=== PATIENT | female | born 1990 | race Two or more races ===

== ENCOUNTER 2019-08-20 11:26 | Emergency (ER) | payer BC, OTHER ==
[2019-08-20 11:35] VITALS: TEMP 98.7
[2019-08-20] MEDS ORDERED: SODIUM CHLORIDE 0.9% 1,000 ML IV ONE (11:50)
--- NOTE | 2019-08-20 11:53 | ED ---
General Adult HPI - General Chief complaint: Vaginal Bleeding Stated complaint: Vaginal bleeding Time Seen by Provider: 08/20/19 11:44 Source: patient, RN notes reviewed Mode of arrival: ambulatory Limitations: no limitations - History of Present Illness Initial comments: Patient is a pleasant 29-year-old female presenting to the emergency Department with complaints of vaginal bleeding. Patient believes she is approximate 6-8 weeks . Last menstrual cycle was in May. Patient had 2 previous pregnancies, one of them when gestation without complication. Patient has started having mild spotting around a week ago. Around 3-4 days ago patient had slightly increased bleeding however still is mild. Patient does have cramping that is mild daytime however and nighttime can be moderate at times. - Related Data Home Medications Medication Instructions Recorded Confirmed Mlh-Gohi-Wjjdu Acid 1 tab PO DAILY 01/10/16 02/01/16 [-U Capsule (formulary)] Previous Rx's Medication Instructions Recorded Acetaminophen/Codeine Liquid 5 ml PO Q4H PRN #100 ml 02/02/16 [Tylenol/Codeine Liquid] Allergies Allergy/AdvReac Type Severity Reaction Status Date / Time No Known Allergies Allergy Verified 08/20/19 11:36 Review of Systems ROS Statement: Those systems with pertinent positive or pertinent negative responses have been documented in the HPI. ROS Other: All systems not noted in ROS Statement are negative. Constitutional: Denies: fever Eyes: Denies: eye pain ENT: Denies: ear pain Respiratory: Denies: cough Cardiovascular: Denies: chest pain Endocrine: Denies: fatigue Gastrointestinal: Denies: abdominal pain, nausea, vomiting Genitourinary: Reports: as per HPI. Denies: dysuria Musculoskeletal: Denies: back pain Skin: Denies: rash Neurological: Denies: weakness Past Medical History Past Medical History: GERD/Reflux History of Any Multi-Drug Resistant Organisms: None Reported Past Surgical History: Section Past Anesthesia/Blood Transfusion Reactions: No Reported Reaction Past Psychological History: No Psychological Hx Reported Smoking Status: Never smoker Past Alcohol Use History: None Reported Past Drug Use History: None Reported - Past Family History Father Family Medical History: No Reported History Mother Family Medical History: No Reported History General Exam Limitations: no limitations General appearance: alert, in no apparent distress Head exam: Present: normocephalic Eye exam: Present: normal appearance Respiratory exam: Present: normal lung sounds bilaterally Cardiovascular Exam: Present: regular rate, normal rhythm GI/Abdominal exam: Present: soft. Absent: distended, tenderness, guarding, rebound, rigid External exam: Present: normal external exam (Nurse Natalia is present) Speculum exam: Present: vaginal bleeding (Mild) By manual exam: Present: normal by manual exam. Absent: cervical motion tenderness, adnexal tenderness, adnexal mass Extremities exam: Present: normal inspection Neurological exam: Present: alert Psychiatric exam: Present: normal affect, normal mood Skin exam: Present: normal color Course Vital Signs 08/20/19 08/20/19 08/20/19 11:33 12:29 13:55 Temperature 98.7 F Pulse Rate 104 H 88 84 Respiratory 16 18 18 Rate Blood Pressure 129/85 125/90 133/93 O2 Sat by Pulse 100 99 100 Oximetry Medical Decision Making - Medical Decision Making Patient reevaluated and resting comfortably at bedside, dressed. Patient is updated on results including ultrasound. Patient is made aware that ectopic has not completely ruled out. Patient is made aware of need for repeat beta hCG in 48 hours as well as follow up with Dr. Pham. Case was discussed with Dr. Pham who is made aware and in agreement with plan. - Lab Data Result diagrams: 08/20/19 13:25 08/20/19 12:00 Lab Results 08/20/19 08/20/19 08/20/19 Range/Units 12:00 12:00 12:00 WBC (3.8-10.6) k/uL RBC (3.80-5.40) m/uL Hgb (11.4-16.0) gm/dL Hct (34.0-46.0) % MCV (80.0-100.0) fL MCH (25.0-35.0) pg MCHC (31.0-37.0) g/dL RDW (11.5-15.5) % Plt Count (150-450) k/uL Neutrophils % % Lymphocytes % % Monocytes % % Eosinophils % % Basophils % % Neutrophils # (1.3-7.7) k/uL Lymphocytes # (1.0-4.8) k/uL Monocytes # (0-1.0) k/uL Eosinophils # (0-0.7) k/uL Basophils # (0-0.2) k/uL PT 10.0 (9.0-12.0) sec INR 1.0 (<1.2) APTT 25.4 (22.0-30.0) sec Sodium 139 (137-145) mmol/L Potassium 4.3 (3.5-5.1) mmol/L Chloride 108 H (98-107) mmol/L Carbon Dioxide 19 L (22-30) mmol/L Anion Gap 12 mmol/L BUN 10 (7-17) mg/dL Creatinine 0.58 (0.52-1.04) mg/dL Est GFR (CKD-EPI)AfAm >90 (>60 ml/min/1.73 sqM) Est GFR (CKD-EPI)NonAf >90 (>60 ml/min/1.73 sqM) Glucose 93 (74-99) mg/dL Calcium 9.4 (8.4-10.2) mg/dL Total Bilirubin 0.7 (0.2-1.3) mg/dL AST 26 (14-36) U/L ALT 15 (4-34) U/L Alkaline Phosphatase 56 (38-126) U/L Total Protein 8.1 (6.3-8.2) g/dL Albumin 4.6 (3.5-5.0) g/dL HCG, Quant 798.7 mIU/mL Urine Color Urine Appearance (Clear) Urine pH (5.0-8.0) Ur Specific [place] (1.001-1.035) Urine Protein (Negative) Urine Glucose (UA) (Negative) Urine Ketones (Negative) Urine Blood (Negative) Urine Nitrite (Negative) Urine Bilirubin (Negative) Urine Urobilinogen (<2.0) mg/dL Ur Leukocyte Esterase (Negative) Urine RBC (0-5) /hpf Urine WBC (0-5) /hpf Ur Squamous Epith Cells (0-4) /hpf Urine Bacteria (None) /hpf Urine Mucus (None) /hpf Trichomonas Ag (Rapid) (Negative) Blood Type A Positive Blood Type Recheck A Pos Bld Type Recheck Status No 08/20/19 08/20/19 08/20/19 Range/Units 12:02 12:30 13:25 WBC 9.2 (3.8-10.6) k/uL RBC 4.49 (3.80-5.40) m/uL Hgb 14.2 (11.4-16.0) gm/dL Hct 42.9 (34.0-46.0) % MCV 95.6 (80.0-100.0) fL MCH 31.6 (25.0-35.0) pg MCHC 33.0 (31.0-37.0) g/dL RDW 12.0 (11.5-15.5) % Plt Count 274 (150-450) k/uL Neutrophils % 81 % Lymphocytes % 14 % Monocytes % 3 % Eosinophils % 2 % Basophils % 0 % Neutrophils # 7.4 (1.3-7.7) k/uL Lymphocytes # 1.3 (1.0-4.8) k/uL Monocytes # 0.3 (0-1.0) k/uL Eosinophils # 0.1 (0-0.7) k/uL Basophils # 0.0 (0-0.2) k/uL PT (9.0-12.0) sec INR (<1.2) APTT (22.0-30.0) sec Sodium (137-145) mmol/L Potassium (3.5-5.1) mmol/L Chloride (98-107) mmol/L Carbon Dioxide (22-30) mmol/L Anion Gap mmol/L BUN (7-17) mg/dL Creatinine (0.52-1.04) mg/dL Est GFR (CKD-EPI)AfAm (>60 ml/min/1.73 sqM) Est GFR (CKD-EPI)NonAf (>60 ml/min/1.73 sqM) Glucose (74-99) mg/dL Calcium (8.4-10.2) mg/dL Total Bilirubin (0.2-1.3) mg/dL AST (14-36) U/L ALT (4-34) U/L Alkaline Phosphatase (38-126) U/L Total Protein (6.3-8.2) g/dL Albumin (3.5-5.0) g/dL HCG, Quant mIU/mL Urine Color Light Red Urine Appearance Cloudy H (Clear) Urine pH 6.0 (5.0-8.0) Ur Specific [place] 1.029 (1.001-1.035) Urine Protein 1+ H (Negative) Urine Glucose (UA) Negative (Negative) Urine Ketones Negative (Negative) Urine Blood Large H (Negative) Urine Nitrite Negative (Negative) Urine Bilirubin Negative (Negative) Urine Urobilinogen <2.0 (<2.0) mg/dL Ur Leukocyte Esterase Moderate H (Negative) Urine RBC >182 H (0-5) /hpf Urine WBC 30 H (0-5) /hpf Ur Squamous Epith Cells 9 H (0-4) /hpf Urine Bacteria Rare H (None) /hpf Urine Mucus Many H (None) /hpf Trichomonas Ag (Rapid) Negative (Negative) Blood Type Blood Type Recheck Bld Type Recheck Status - Radiology Data Radiology results: report reviewed (Pelvic ultrasound shows possible spontaneous however cannot rule out early IUP. Ectopic not entirely excluded. No suspicious extra ovarian adnexal mass.) Disposition Clinical Impression: Threatened Disposition: HOME SELF-CARE Condition: Stable Instructions (If sedation given, give patient instructions): Threatened Miscarriage (ED) Additional Instructions: Repeat blood draw in 48 hours, prescription provided. Please follow-up with Dr. Pham after this blood draw for further evaluation. Return for increased pain, bleeding, passing out, worsening or changing symptoms or other concerns. Please be made aware that ectopic/tubal has not been completely excluded. Is patient prescribed a controlled substance at d/c from ED?: No Referrals: Abel Hunt MD [Primary Care Provider] - 1-2 days Wesley Jordan DO [Doctor of Osteopathic Medicine] - 1-2 days Time of Disposition: 14:06
[2019-08-20 12:30] LABS: ALT 15 U/L (4-34); AST 26 U/L (14-36); African American GFR (CKD) >90 (>60 ml/min/1.73 sqM); Albumin 4.6 g/dL (3.5-5.0); Alkaline Phosphatase 56 U/L (38-126); Anion Gap 12 mmol/L; Blood Urea Nitrogen 10 mg/dL (7-17); Calcium 9.4 mg/dL (8.4-10.2); Carbon Dioxide 19 mmol/L (22-30); Chloride 108 mmol/L (98-107); Glucose 93 mg/dL (74-99); Non-African American GFR(CKD) >90 (>60 ml/min/1.73 sqM); Sodium 139 mmol/L (137-145); Total Bilirubin 0.7 mg/dL (0.2-1.3); Total Protein 8.1 g/dL (6.3-8.2)
[2019-08-20 12:31] VITALS: RESP 18
[2019-08-20 12:46] LABS: HCG,Quantitative Serum 798.7 mIU/mL
[2019-08-20 12:56] LABS: Potassium 4.3 mmol/L (3.5-5.1)
[2019-08-20 12:57] LABS: Partial Thromboplastin Time 25.4 sec (22.0-30.0)
[2019-08-20 13:03] LABS: Appearance,Urine Cloudy (Clear); Bacteria,Urine Rare /hpf; Bilirubin,Urine Negative (Negative); Blood,Urine Large (Negative); Color,Urine Light Red; Glucose,Urine (UA) Negative (Negative); Ketones,Urine Negative (Negative); Leukocyte Esterase,Urine Moderate (Negative); Mucus,Urine Many /hpf; Nitrite,Urine Negative (Negative); Protein,Urine 1+ (Negative); RBC,Urine >182 /hpf (0-5); Specific Gravity,Urine 1.029 (1.001-1.035); Squamous Epithelial Cell,Urine 9 /hpf (0-4); Urobilinogen,Urine <2.0 mg/dL (<2.0); WBC,Urine 30 /hpf (0-5)
--- NOTE | 2019-08-20 13:31 | US ---
EXAMINATION TYPE: Transabdominal DATE OF EXAM: 08/20/2019 1:13 PM COMPARISON: NONE CLINICAL HISTORY: pain. bleeding EXAM PERFORMED: Transvaginal (TV) and Transabdominal (TA) EXAM MEASUREMENTS: GESTATIONAL AGE / DATING Physician Established: Not yet established Dates by LMP: (7 weeks/4 days) EDC: 04/03/2020 Dates by First Scan: No previous this is first scan ( Dates by Current Scan for: Unable to dates MATERNAL ANATOMY Uterus: 9.0 x 4.8 x 6.1 cm Right Ovary: 3.3 x 2.5 x 1.8 cm Left Ovary: 3.8 x 2.4 x 2.0 cm Post CDS / Adnexa: wnl Presence of free fluid: No Presence of corpus luteal cyst: Yes, left ovary measuring 2.2 x 1.6 x 1.6 cm Presence of subchorionic bleed: No GESTATION / SURVEY MSD: 0.61 cm Too small to measure IUP: No IUP seen at this time Date of LMP: 06/28/2019 Beta HcG (if available): 798 No IUP visualized. Irregular appearing sac structure visualized measuring 0.8 x 0.6 x 0.4 cm with no yolk sac or pole visualized. Hypoechoic area visualized left ovary measuring 2.2 x 1.6 x 1.6 cm . Unable to visualize entire left ovary transvaginally. Only visualized transabdominally Heterogeneous anteverted uterus. Poorly defined endometrial stripe seen better on transvaginal invest igation measuring up to 12 mm in thickness. There is an oval irregular anechoic lesion lower uterine segment measuring 8 x 6 x 4 mm if this reflects gestational sac is felt abnormal as there is no disti nct surrounding decidual reaction. No yolk sac or pole seen. No free fluid in pelvis. Both ovaries identified with 2.2 cm oval hypoechoic peripheral hypervascular lesion left ovary felt t o reflect corpus luteal cyst. No suspicious extra ovarian adnexal mass. IMPRESSION: Abnormal study, findings favor ongoing spontaneous but too early to visualize in trauterine is in differential and ectopic is not entirely excluded. Serial beta h CG and ultrasound follow-up is advised.
[2019-08-20 13:33] LABS: Basophils % (A) 0 %; Eosinophils # (A) 0.1 k/uL (0-0.7); Eosinophils % (A) 2 %; HCT 42.9 % (34.0-46.0); HGB 14.2 gm/dL (11.4-16.0); Lymphocytes # (A) 1.3 k/uL (1.0-4.8); Lymphocytes % (A) 14 %; MCH 31.6 pg (25.0-35.0); MCV 95.6 fL (80.0-100.0); Mean Platelet Volume 7.9; Monocytes # (A) 0.3 k/uL (0-1.0); Monocytes % (A) 3 %; Neutrophils # (A) 7.4 k/uL (1.3-7.7); Neutrophils % (A) 81 %; Platelet Count 274 k/uL (150-450); RBC 4.49 m/uL (3.80-5.40); WBC 9.2 k/uL (3.8-10.6)
[2019-08-20 13:57] VITALS: BP 133/93; PULSE 84
[2019-08-21 14:13] LABS: C. trachomatis,PCR Negative (Neg,Equiv); Chlamydia trachomatis Source Vagina; N. gonorrhoeae,PCR Negative (Neg,Equiv); Neisseria Source Vagina
== END 2019-08-20 14:15 | disposition home or self-care (01) ==
LOC: EC 11:26
DX: O20.0 Threatened abortion (principal)
CPT/HCPCS: 36415; 76801; 76817; 80053; 81001; 84702; 85025; 85610; 85730; 86900; 86901; 87070; 87086; 87491; 87591; 87808; 99284

== ENCOUNTER → 2019-08-25 | Outpatient (CLI) | payer OTHER | END | disposition home or self-care (01) | LOC: LABWHC1 11:22 | PROVIDERS: ATTEND Emergency Medicine | DX: N93.9 Abnormal uterine and vaginal bleeding, unspecified (principal) | CPT/HCPCS: 36415; 84702 ==

== ENCOUNTER → 2019-09-01 | Outpatient (CLI) | payer OTHER | END | disposition home or self-care (01) | LOC: LABWHC1 11:45 | PROVIDERS: ATTEND Obstetrics & Gynecology | DX: O03.9 Complete or unspecified spontaneous abortion without complication (principal) | CPT/HCPCS: 36415; 84702 ==

== ENCOUNTER 2021-10-14 10:45 | Outpatient (CLI) | payer OTHER ==
[2021-10-14 11:36] LABS: Basophils % (A) 0 %; Eosinophils % (A) 1 %; HCT 33.3 % (34.0-46.0); HGB 11.4 gm/dL (11.4-16.0); Lymphocytes # (A) 1.4 k/uL (1.0-4.8); Lymphocytes % (A) 15 %; MCH 32.5 pg (25.0-35.0); MCHC 34.2 g/dL (31.0-37.0); MCV 94.9 fL (80.0-100.0); Mean Platelet Volume 9.4; Monocytes # (A) 0.3 k/uL (0-1.0); Monocytes % (A) 3 %; Neutrophils # (A) 7.6 k/uL (1.3-7.7); Neutrophils % (A) 81 %; Platelet Count 246 k/uL (150-450); RBC 3.51 m/uL (3.80-5.40); RDW 12.8 % (11.5-15.5); WBC 9.4 k/uL (3.8-10.6)
[2021-10-14 11:48] LABS: Appearance,Urine Cloudy (Clear); Bacteria,Urine Occasional /hpf; Bilirubin,Urine Negative (Negative); Blood,Urine Negative (Negative); Color,Urine Yellow; Glucose,Urine (UA) Negative (Negative); Ketones,Urine Negative (Negative); Leukocyte Esterase,Urine Negative (Negative); Mucus,Urine Many /hpf; Nitrite,Urine Negative (Negative); PH, Urine 6.5 (5.0-8.0); Protein,Urine Trace (Negative); RBC,Urine 2 /hpf (0-5); Specific Gravity,Urine 1.022 (1.001-1.035); Squamous Epithelial Cell,Urine 7 /hpf (0-4); Urobilinogen,Urine <2.0 mg/dL (<2.0); WBC,Urine 4 /hpf (0-5)
[2021-10-14 11:49] LABS: ALT 16 U/L (4-34); AST 18 U/L (14-36); African American GFR (CKD) >90 (>60 ml/min/1.73 sqM); Blood Urea Nitrogen 5 mg/dL (7-17); LDH 315 U/L (313-618); Non-African American GFR(CKD) >90 (>60 ml/min/1.73 sqM); Uric Acid 4.5 mg/dL (3.7-7.4)
[2021-10-14 11:50] LABS: Creatinine,Urine Random 211.3 mg/dL; Protein/Creatinine Ratio,Urine 0.043
[2021-10-14 12:10] VITALS: BP 123/83; PULSE 76; RESP 16; TEMP 97.2
--- NOTE | 2021-10-15 02:34 | P.MSEPDOC ---
Presenting Problems - Arrival Data Date of Arrival on Unit: 10/14/21 Time of Arrival on Unit: 10:45 Mode of Transport: Ambulatory - Complaint OB-Reason for Admission/Chief Complaint: PIH Medical History - Information : 5 Para: 3 Term: 2 : 1 Abortions: Spontaneous or Elective: 2 Number of Living Children: 3 - Gestational Age Gestational Age by JEAN PAUL (wks/days): 34 Weeks and 3 Days Review of Systems - Review of Systems Constitutional: No problems Breast: No problems ENT: No problems Cardiovascular: No problems Respiratory: No problems Gastrointestinal: No problems Genitourinary: No problems Musculoskeletal: No problems Neurological: No problems Skin: No problems Vital Signs - Temperature Temperature: 97.2 F Temperature Source: Temporal Artery Scan - Pulse Right Sitting Pulse Rate: 76 Pulse Assessment Method: Automatic Cuff - Respirations Respiratory Rate: 16 Oxygen Delivery Method: Room Air O2 Sat by Pulse Oximetry: 99 - Blood Pressure Right Arm Blood Pressure: 123/83 Blood Pressure Mean: 96 Blood Pressure Source: Automatic Cuff Medical Screen Scoring - Assessment - Baby A Baseline FHR: 130 Heart Rate - NICHD Category: Category I (Normal) NST: Reactive Physician Notification - Physician Notified Physician Notified Date: 10/14/21 Physician Notified Time: 11:58 Physician: Seda Villagomez Order Received: Yes Maternal Triage Index - Non-Urgent/Priority 4 Non-Urgent Priority 4: Yes Criteria Met for Priority 4: PIH eval sent from office, bps 120s/70s, labs wnl, reactive nst Disposition - Disposition OB Disposition: Discharge to home Discharge Date: 10/14/21 Discharge Time: 12:04 I agree with the RN Medical Screening Exam: Yes Case reviewed; plan agreed upon as documented in EMR&OBIX.: Yes Diagnosis: GESTATIONAL HTN W/O SIGNIFICANT PROTEINURIA, THIRD TRIMESTER
== END 2021-10-14 12:04 | disposition home or self-care (01) ==
LOC: FBPOP 10:45
PROVIDERS: ATTEND Obstetrics & Gynecology
DX: O13.3 Gestational [pregnancy-induced] hypertension without significant proteinuria, third trimester (principal); Z3A.34 34 weeks gestation of pregnancy
CPT/HCPCS: 36415; 59025; 81001; 82565; 82570; 83615; 84156; 84450; 84460; 84520; 84550; 85025

== ENCOUNTER 2021-11-15 06:06 | Inpatient (IN) | payer OTHER ==
--- NOTE | 2021-11-14 17:45 | P.HPOB ---
History of Present Illness H&P Date: 11/14/21 Chief Complaint: IUGR This is a 31 y.o. female, 5, para 2, with an estimated date of confinement of 11/22/2021, estimated gestational age of 39-0/7 weeks, who presents for scheduled repeat section with possible bilateral tubal ligation due to intrauterine growth restriction with abdominal circumference measuring at less than 4th percentile on her latest ultrasound at maternal medicine. She has been seeing maternal medicine for EIF on earlier ultrasound and marginal cord insertion. She has irregular contractions and monitoring has been reassuring. labs: Hepatitis B surface antigen-neg RPR-NR Rubella-immune Blood type-A+ Antibody screen-neg HIV-NR Hemoglobin-12.9 Random glucose-78 1 hr. GTT-112 GBS-neg OB Hx: . History of delivery for 1st preg due to failure to progress at 40 weeks. Had repeat for twins at 36 weeks. 2 miscarriages. Sports Activities Foul Judge Hx: History of trichomonas treated in past. Social Hx: Single. Homemaker. Review of Systems Constitutional: Denies chills, Denies fever Eyes: denies blurred vision, denies pain Ears, nose, mouth and throat: Denies headache, Denies sore throat Cardiovascular: Denies chest pain, Denies shortness of breath Respiratory: Denies cough Gastrointestinal: Reports abdominal pain (irregular contractions) Genitourinary: Reports pelvic pain, Reports Musculoskeletal: Reports low back pain Integumentary: Denies pruritus, Denies rash Neurological: Denies numbness, Denies weakness Psychiatric: Denies anxiety, Denies depression Past Medical History Past Medical History: GERD/Reflux History of Any Multi-Drug Resistant Organisms: None Reported Past Surgical History: Section (x2) Past Anesthesia/Blood Transfusion Reactions: No Reported Reaction Past Psychological History: No Psychological Hx Reported Smoking Status: Never smoker Past Alcohol Use History: None Reported Past Drug Use History: None Reported - Past Family History Father Family Medical History: No Reported History Mother Family Medical History: No Reported History Medications and Allergies Home Medications Medication Instructions Recorded Confirmed Type Coo-Agyh-Zciso Acid 1 tab PO DAILY 01/10/16 11/15/21 History [-U Capsule (formulary)] Aspirin [Adult Low Dose Aspirin EC] 81 mg PO DAILY 10/14/21 11/15/21 History Allergies Allergy/AdvReac Type Severity Reaction Status Date / Time No Known Allergies Allergy Verified 10/14/21 10:59 Exam Osteopathic Statement: *. No significant issues noted on an osteopathic structural exam other than those noted in the History and Physical/Consult. HEENT: within normal limits Heart: regular rate and rhythm Lungs: clear to auscultation bilaterally Abdomen: Cervix: closed/60%/-3 heart tones: 140's by doppler Extremities: neg. Darvin's Results Result Diagrams: 11/15/21 06:45 Assessment and Plan (1) 39 weeks gestation of Current Visit: No Status: Acute Code(s): Z3A.39 - 39 WEEKS GESTATION OF SNOMED Code(s): 12953749 (2) IUGR (intrauterine growth retardation) affecting mother Current Visit: No Status: Acute Code(s): O36.5990 - MATERN CARE FOR OTH OR SUSP POOR FETL GRTH, UNSP TRI, UNSP SNOMED Code(s): 870190424 (3) Previous delivery affecting Current Visit: No Status: Acute Code(s): O34.219 - MATERNAL CARE FOR UNSP TYPE SCAR FROM PREVIOUS DEL SNOMED Code(s): 815060040 (4) Family planning Current Visit: No Status: Acute Code(s): Z30.09 - ENCOUNTER FOR OTH GENERAL CNSL AND ADVICE ON CONTRACEPTION SNOMED Code(s): 069058980 Plan: Proceed with repeat section with possible bilateral partial salpingectomy. I have discussed the risks, benefits, and alternative therapies for the above- mentioned procedure and for both sedation/anesthesia as well as necessary blood products administration, if indicated, as they pertain to this patient. The patient has indicated her understanding and acceptance of the risks and procedures discussed.
[2021-11-15] MEDS ORDERED: CITRIC ACID-SODIUM CITRATE 15 ML CUP PO ONE (06:23)
[2021-11-15] MEDS ORDERED: LIDOCAINE 1% (10MG/ML) FOR IV START INTRADERMA PRN (06:23)
[2021-11-15] MEDS ORDERED: LACTATED RINGERS 1,000 ML IV ONE (06:23)
[2021-11-15 07:01] LABS: Basophils % (A) 0 %; Eosinophils # (A) 0.1 k/uL (0-0.7); Eosinophils % (A) 1 %; HCT 35.3 % (34.0-46.0); Lymphocytes # (A) 1.7 k/uL (1.0-4.8); Lymphocytes % (A) 18 %; MCH 32.5 pg (25.0-35.0); MCHC 33.9 g/dL (31.0-37.0); MCV 95.8 fL (80.0-100.0); Mean Platelet Volume 10.1; Monocytes # (A) 0.5 k/uL (0-1.0); Monocytes % (A) 5 %; Neutrophils # (A) 7.4 k/uL (1.3-7.7); Neutrophils % (A) 75 %; Platelet Count 233 k/uL (150-450); RBC 3.69 m/uL (3.80-5.40); RDW 12.9 % (11.5-15.5); WBC 9.8 k/uL (3.8-10.6)
[2021-11-15] MEDS: LACTATED RINGERS 1,000 ML IV SCH ×3 (07:01→23:21)
[2021-11-15 07:25] VITALS: RESP 16
[2021-11-15] MEDS ORDERED: KETOROLAC 15 MG/ML 1 ML VIAL ONE (07:50)
[2021-11-15] MEDS ORDERED: NALBUPHINE 10 MG/ML (1 ML AMP) ONE (07:50)
[2021-11-15] MEDS ORDERED: MORPHINE SULFATE (PF) 0.3 MG/0.3 ML SYR ONE (07:50)
[2021-11-15] MEDS ORDERED: ONDANSETRON 4 MG/2 ML VIAL ONE (07:50)
[2021-11-15] MEDS ORDERED: OXYTOCIN 30 UNITS/500 ML NS BAG IV ONE (07:50)
[2021-11-15] MEDS ORDERED: METOCLOPRAMIDE 5 MG/ML 2 ML VIAL IVP PRN (08:47)
[2021-11-15] MEDS ORDERED: diphenhydrAMINE 25 MG CAP PO PRN (08:47)
[2021-11-15] MEDS ORDERED: LANOLIN CREAM 5 GM TUBE TOPICAL PRN (08:47)
[2021-11-15] MEDS ORDERED: ZOLPIDEM 5 MG TAB PO PRN (08:47)
[2021-11-15] MEDS ORDERED: diphenhydrAMINE 50 MG CAP PO PRN (08:47)
[2021-11-15] MEDS ORDERED: OXYTOCIN 30 UNITS/500 ML NS 30 UNIT in SALINE 1 500ML.BAG IV SCH (08:47)
[2021-11-15] MEDS ORDERED: HYDROmorphone 1 MG/ML 1 ML SYRINGE IVP PRN (08:47)
[2021-11-15] MEDS ORDERED: SIMETHICONE 80 MG CHEWABLE PO PRN (08:47)
[2021-11-15] MEDS ORDERED: NALOXONE 0.4 MG/ML 1 ML VIAL IV PRN (08:47)
[2021-11-15] MEDS ORDERED: ONDANSETRON 4 MG/2 ML VIAL IVP PRN (08:47)
[2021-11-15] MEDS ORDERED: diphenhydrAMINE 50 MG/ML 1 ML VIAL IVP PRN ×2 (08:47)
[2021-11-15] MEDS ORDERED: HYDROmorphone 0.5 MG/0.5 ML SYRINGE IVP PRN (08:47)
--- NOTE | 2021-11-15 08:47 | P.OP ---
Date of Procedure: 11/15/21 Preoperative Diagnosis: 1. Intrauterine at 39-0/7 weeks. 2. History of previous section. 3. Family-planning. 4. Asymmetric intrauterine growth restriction. Postoperative Diagnosis: Same Procedure(s) Performed: Repeat low transverse section with bilateral partial salpingectomy Anesthesia: spinal (Duramorph) Surgeon: Seda Villagomez Leather Belt Loop Cutter #1: Cameron Quispe Estimated Blood Loss (ml): 410 Pathology: other (Placenta, portions of right and left fallopian tubes) Condition: stable Disposition: floor Indications for Procedure: This is a 31-year-old female 5 para 2 at 39-0/7 weeks who presents for scheduled repeat section with bilateral partial salpingectomy for family planning. She has been followed by maternal medicine during this and recently was diagnosed with asymmetric intrauterine growth restriction with an abdominal circumference measurement less than 4th percentile. status has been reassuring on surveillance. I have discussed the risks, benefits, and alternative therapies for the above- mentioned procedure and for both sedation/anesthesia as well as necessary blood products administration, if indicated, as they pertain to this patient. The patient has indicated her understanding and acceptance of the risks and procedures discussed. Operative Findings: A viable male is noted in the vertex presentation with nuchal cord 1 and scores of 8 at 1 minute and 9 at 5 minutes and infant weight of 6 lbs. 6 oz. Normal uterus tubes and ovaries are noted. Description of Procedure: The patient is taken to the operating room where she is placed in the dorsal supine position with leftward tilt after spinal Duramorph anesthesia is given. She is prepped and draped in the normal sterile fashion. Skin was tested and found to be adequately anesthetized. A Pfannenstiel skin incision was made with a scalpel. A second knife was used to carry the incision down to the underlying layer of fascia. The fascia was nicked in the midline with a scalpel and then extended laterally bilaterally with Rodriguez scissors. The anterior lip of the fascia was grasped with 2 Mavis clamps and then dissected off the underlying rectus muscle in the midline with Rodriguez scissors. The inferior aspect of the fascial incision was grasped with 2 Mavis clamps and dissected off the underlying rectus muscle and the midline with Rodriguez scissors. Next the peritoneum layer was tented up with 2 hemostats and then entered sharply with the scalpel. The incision is extended superiorly and inferiorly with Metzenbaum scissors. Next a DeLee retractor is placed. The vesicouterine peritoneum is entered sharply with Metzenbaum scissors and extended laterally bilaterally with Metzenbaum scissors and then the bladder flap is pushed inferiorly. The lower uterine segment is incised in transverse fashion with the scalpel and then bluntly entered with a hemostat. Clear fluid is noted. The incision was then extended laterally bilaterally with 2 fingers. Next the 's head is delivered through the incision. Nuchal cord 1 is reduced around the infant's head. Nose and mouth are bulb suctioned. The remainder of the infant is easily delivered and placed on mother's abdomen. Cord is clamped and cut. Infant is taken to warmer by nursing staff. Uterine fundus is gently massaged and placenta is delivered manually. Uterus is exteriorized and cleared of all clots and debris. Uterine incision is closed with 0 Vicryl suture in a running locked fashion. A second layer of 0 Vicryl suture is used in a running fashion for hemostasis. Once adequate hemostasis as assured, the vesicouterine peritoneum is reapproximated with 2-0 Vicryl suture in a running fashion. Attention is then turned to the fallopian tubes. The right fallopian tube is grasped with a hemostat and then the mesosalpinx is opened with Bovie cautery. 0 Vicryl suture is tied 2 times around both the proximal and distal portion of the tube. The knuckle of tube was then removed with Metzenbaum scissors. The ends of the tubes are then cauterized with Bovie cautery. The same procedure is carried out on the left fallopian tube. Posterior cul-de-sac is suctioned of all clots and debris. Uterus is returned to the abdomen. Incision is noted to be hemostatic. On inspecting the tubal segments, the right side did appear to be bleeding along the mesosalpinx. This area is grasped with a hemostat and then tied off with 0 Vicryl suture in a free tie. Good hemostasis is noted. The uterus is returned to the abdomen and both tubal segments are noted to be hemostatic. Peritoneum layer is closed with 0 Vicryl suture in a running fashion. Muscle layer is reapproximated with 0 Vicryl suture in interrupted fashion. Fascia layer is then closed with 0 PDS suture with 2 sutures meeting in the midline and the knots buried in either side and in the midline. The subcutaneous tissue was then closed with 2-0 Vicryl suture. Skin layer was then closed with jakob. All sponge and needle counts are correct. The patient is taken to recovery room in stable condition.
[2021-11-15] MEDS: SENNOSIDES-DOCUSATE SODIUM 1 EACH TAB PO SCH ×2 (09:10→20:06)
[2021-11-15] MEDS: PRENATAL VIT-IRON-FOLIC ACID 1 EACH TABLET PO SCH (09:11)
[2021-11-15] MEDS: ACETAMINOPHEN IV (For NPO) 1,000 MG in EMPTY BAG 1 BAG IVPB SCH ×2 (12:18→20:04)
[2021-11-15] MEDS: ACETAMINOPHEN TAB 500 MG TAB PO SCH ×3 (12:50→23:21)
[2021-11-15] MEDS: KETOROLAC 15 MG/ML 1 ML VIAL IVP SCH ×2 (15:30→23:31)
[2021-11-15] MEDS: IBUPROFEN 600 MG TAB PO SCH ×2 (17:28→20:06)
[2021-11-16] MEDS: IBUPROFEN 600 MG TAB PO SCH ×4 (00:37→20:48)
[2021-11-16] MEDS: ACETAMINOPHEN TAB 500 MG TAB PO SCH ×3 (05:21→16:17)
[2021-11-16] MEDS: KETOROLAC 15 MG/ML 1 ML VIAL IVP SCH ×2 (06:29→12:53)
[2021-11-16] MEDS: LACTATED RINGERS 1,000 ML IV SCH ×2 (06:30→14:40)
[2021-11-16 06:31] LABS: Basophils % (A) 0 %; Eosinophils # (A) 0.1 k/uL (0-0.7); Eosinophils % (A) 1 %; HCT 35.1 % (34.0-46.0); HGB 11.3 gm/dL (11.4-16.0); Lymphocytes # (A) 1.6 k/uL (1.0-4.8); Lymphocytes % (A) 18 %; MCH 31.5 pg (25.0-35.0); MCHC 32.1 g/dL (31.0-37.0); Mean Platelet Volume 9.2; Monocytes # (A) 0.3 k/uL (0-1.0); Monocytes % (A) 3 %; Neutrophils # (A) 6.6 k/uL (1.3-7.7); Neutrophils % (A) 77 %; Platelet Count 203 k/uL (150-450); RBC 3.58 m/uL (3.80-5.40); RDW 12.9 % (11.5-15.5); WBC 8.6 k/uL (3.8-10.6)
[2021-11-16] MEDS: SENNOSIDES-DOCUSATE SODIUM 1 EACH TAB PO SCH (08:18)
--- NOTE | 2021-11-16 08:43 | P.PNOBGPC ---
Subjective - Subjective Principal diagnosis: Status post repeat LTCS with bilateral tubal postoperative day #1 Interval history: Patient is doing well. She is ambulating. Lochia is decreasing. Her pain is fairly well controlled. She is passing flatus but no bowel movement yet. She is urinating. She is bottle feeding. Patient reports: Reports appetite normal, Reports voiding normally, Reports pain well controlled, Reports ambulating normally : doing well, bottle feeding Objective - Vital Signs Latest vital signs: Vital Signs Temp Pulse Resp BP Pulse Ox 11/16/21 05:19 97.7 F 71 16 103/71 99 11/16/21 00:00 97.8 F 70 16 114/75 100 11/15/21 20:00 97.7 F 68 16 119/76 98 11/15/21 16:00 97.1 F L 64 16 114/75 98 11/15/21 12:00 97.5 F L 74 16 106/69 98 11/15/21 10:47 97.6 F 70 16 115/67 100 11/15/21 10:17 79 16 129/77 100 11/15/21 09:47 97.4 F L 67 16 116/66 99 11/15/21 09:32 74 16 117/64 99 11/15/21 09:17 97.5 F L 72 16 114/68 99 11/15/21 09:02 76 16 101/59 98 11/15/21 08:47 97.1 F L 78 16 110/65 100 Intake and Output 11/15/21 11/16/21 11/16/21 22:59 06:59 14:59 Output Total 115 500 Balance -115 -500 Output: Urine 115 500 Other: # Voids 1 - Exam Extremities: Present: normal, edema (Trace). Absent: tenderness Abdomen: Present: normal appearance, soft (Positive bowel sounds 4). Absent: distention, tenderness Incision: Present: normal, dry, intact. Absent: erythematous Uterus: Present: normal, firm. Absent: tenderness - Labs Labs: Abnormal Lab Results - Last 24 Hours (Table) 11/16/21 Range/Units 06:13 RBC 3.58 L (3.80-5.40) m/uL Hgb 11.3 L (11.4-16.0) gm/dL Assessment and Plan Assessment: Status post repeat low transverse section with bilateral partial salpingectomy postoperative day #1 (1) 39 weeks gestation of Current Visit: No Status: Acute Code(s): Z3A.39 - 39 WEEKS GESTATION OF SNOMED Code(s): 69364353 (2) IUGR (intrauterine growth retardation) affecting mother Current Visit: No Status: Acute Code(s): O36.5990 - MATERN CARE FOR OTH OR SUSP POOR FETL GRTH, UNSP TRI, UNSP SNOMED Code(s): 063039799 (3) Previous delivery affecting Current Visit: No Status: Acute Code(s): O34.219 - MATERNAL CARE FOR UNSP TYPE SCAR FROM PREVIOUS DEL SNOMED Code(s): 116427849 (4) Family planning Current Visit: No Status: Acute Code(s): Z30.09 - ENCOUNTER FOR OTH GENERAL CNSL AND ADVICE ON CONTRACEPTION SNOMED Code(s): 264583138 Plan: Continue with postoperative and care today. Advance diet as tolerated. May shower.
--- NOTE | 2021-11-16 09:37 | P.PN ---
Progress Note - Text Date: 11/16/2021 Time: 07:07 The patient is status post section Vital signs stable VAS:0-10 Patient has no complaints of pain. The patient incurred some minimal itching yesterday, this itching is now subsiding. Pain meds to be managed by service.
[2021-11-16] MEDS: PRENATAL VIT-IRON-FOLIC ACID 1 EACH TABLET PO SCH (09:38)
[2021-11-17] MEDS: IBUPROFEN 600 MG TAB PO SCH ×2 (02:29→06:05)
[2021-11-17] MEDS: ACETAMINOPHEN TAB 500 MG TAB PO SCH ×2 (03:45→11:57)
[2021-11-17 07:48] VITALS: BP 124/85; PULSE 68; TEMP 98.6
[2021-11-17] MEDS: SENNOSIDES-DOCUSATE SODIUM 1 EACH TAB PO SCH (09:03)
--- NOTE | 2021-11-17 09:22 | P.DS ---
Providers Date of admission: 11/15/21 06:06 Expected date of discharge: 11/17/21 Attending physician: Seda Villagomez Primary care physician: Stated None - Discharge Diagnosis(es) (1) 39 weeks gestation of Current Visit: No Status: Acute (2) IUGR (intrauterine growth retardation) affecting mother Current Visit: No Status: Acute (3) Previous delivery affecting Current Visit: No Status: Acute (4) Family planning Current Visit: No Status: Acute Hospital Course: This is a 31-year-old female 5 para 2 at 39-0/7 weeks who presented for repeat section with bilateral partial salpingectomy on 11/15/2021. She underwent the above-noted procedure under spinal Duramorph anesthesia on 11/15/2021. Postoperatively she did well. Her pain is been well controlled. She is passing flatus and bowel movement. She is bottle feeding. Lochia. Vital signs are stable. Abdomen is soft with positive bowel sounds 4. Incision is clean dry and intact. Externally showed negative Homans. Impression is status post repeat low transverse section with bilateral partial some acne postoperative day #2. Plan is to discharge home today. Routine postoperative and instructions are given. She is advised follow-up in the office in 1 week for a postoperative check. She is advised to call the office if she has any further questions or concerns prior to her appointment time. Jaison will be removed and Steri-Strips placed prior to discharge. She will be given a prescription for ibuprofen. Procedures: Repeat low transverse section with bilateral partial salpingectomy on 11/15/2021 Patient Condition at Discharge: Stable Plan - Discharge Summary New Discharge Prescriptions: New Ibuprofen [Motrin] 600 mg PO Q6H #60 tab Continue Fdn-Kzpr-Vonnu Acid [-U Capsule (formulary)] 1 tab PO DAILY Discontinued Aspirin [Adult Low Dose Aspirin EC] 81 mg PO DAILY Discharge Medication List [id number] Acid [-U Capsule (formulary)] 1 tab PO DAILY 01/10/16 [History] Ibuprofen [Motrin] 600 mg PO Q6H #60 tab 11/17/21 [Rx] Follow up Appointment(s)/Referral(s): Seda Villagomez DO [Doctor of Osteopathic Medicine] - 12/30/21 3:30 pm (Post Op appointment 11-25-2021 at 09:00a.m.) Activity/Diet/Wound Care/Special Instructions: Instructions 1. Do not begin any exercise program for 3 weeks. 2. Do not resume sexual relations for 3 weeks or longer if uncomfortable. 3. You may take tub baths or showers at any time. 4. You may use tampons if desired after 3 weeks. 5. Keep the area of episiotomy (stitches) clean and dry. 6. If you are not nursing, wear a good fitting, supportive bra during the day and limit fluid intake for at least 1 week to prevent breast engorgement. 7. Call the office, [phone], within the next week to make appointment for your 6 week checkup if it has not already been made. 8. Report any of the following occurrences to the doctor promptly: a. Heavy, excessive bleeding b. Chills, fever c. Burning or frequency of urination d. Pain or redness and breasts if nursing e. Increasing pain or swelling in episiotomy (stitches). In addition to the above instructions, the following additional should be followed: 1. No heavy lifting or straining (exercising) until after 6 week checkup. 2. Keep abdominal incision clean and dry: You may wear a dressing if more comfortable. 3. Make office appointment for 10 days after going home or as instructed by her doctor. Discharge Disposition: HOME SELF-CARE
== END 2021-11-17 12:04 | disposition home or self-care (01) | DRG 785 ==
LOC: 4FBP 06:06
PROVIDERS: ADMIT Obstetrics & Gynecology; ATTEND Obstetrics & Gynecology
PROC: 0UB70ZZ Excision of Bilateral Fallopian Tubes, Open Approach (ICD-10-PCS; principal; 2021-11-15 08:00)
PROC: 10D00Z1 Extraction of Products of Conception, Low, Open Approach (ICD-10-PCS; principal; 2021-11-15 08:00)
DX: O36.5930 Maternal care for other known or suspected poor fetal growth, third trimester, not applicable or unspecified (principal); K21.9 Gastro-esophageal reflux disease without esophagitis; Z28.310 Unvaccinated for COVID-19; O69.81X0 Labor and delivery complicated by cord around neck, without compression, not applicable or unspecified; O69.89X0 Labor and delivery complicated by other cord complications, not applicable or unspecified; O34.211 Maternal care for low transverse scar from previous cesarean delivery; Z37.0 Single live birth; O99.62 Diseases of the digestive system complicating childbirth; Z30.2 Encounter for sterilization; Z3A.39 39 weeks gestation of pregnancy; Z79.82 Long term (current) use of aspirin; Z79.899 Other long term (current) drug therapy; Z86.19 Personal history of other infectious and parasitic diseases
CPT/HCPCS: 85025; 86850; 86900; 86901; 88302; 88307